=== PATIENT | female | born 1985 | race American Indian/Alaskan Native ===

== ENCOUNTER 2017-03-10 16:37 | Inpatient (IN) | payer OTHER ==
[2017-03-10] MEDS ORDERED: Sodium Chloride 0.9% 1,000 ML IV STA (17:11)
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
[2017-03-10] MEDS ORDERED: Morphine 4 MG/ML VIAL ONE ×2 (17:19→18:20)
[2017-03-10 17:39] LABS: BASO % 0.2 % (0.0-2.0); EOS # 0.1 K/uL (0.0-0.7); EOS % 1.2 % (0.0-4.0); HEMATOCRIT 38.2 % (34.0-47.0); LYMPH % 21.8 % (20.0-40.0); MEAN CELL VOLUME 90.3 fl (81.0-99.0); MEAN CORPUSCULAR HEMOGLOBIN 30.2 pg (27.0-31.0); MEAN CORPUSCULAR HGB CONC 33.4 g/dL (33.0-37.0); MEAN PLATELET VOLUME 9.4 fl (7.2-11.7); MONO # 1.4 K/uL (0.0-0.8); MONO % 15.4 % (0.0-10.0); NEUT # 5.5 K/uL (1.8-7.0); NEUT % 61.4 % (50.0-75.0); NRBC % 0.2 % (0.0-0.0); RED CELL DISTRIBUTION WIDTH 13.5 % (11.5-14.5)
[2017-03-10 18:01] LABS: ALB/GLOB RATIO 1.1 (1.0-2.1); ALKALINE PHOSPHATASE 111 U/L (38-126); ALT/SGPT 37 U/L (9-52); AST/SGOT 34 U/L (14-36); BILIRUBIN,TOTAL 0.3 mg/dl (0.2-1.3); BLOOD UREA NITROGEN 11 mg/dl (7-17); CALCIUM 9.4 mg/dL (8.4-10.2); CARBON DIOXIDE 24 mmol/L (22-30); CHLORIDE 102 mmol/L (98-107); GFR AFRICAN-AMERICAN > 60; GLUCOSE,RANDOM 86 mg/dL (65-105); POTASSIUM 3.7 MMOL/L (3.6-5.0); SODIUM 135 mmol/l (132-148); TOTAL PROTEIN 7.5 G/DL (6.3-8.2)
--- NOTE | 2017-03-10 18:19 | RAD ---
PROCEDURE: Radiographs of the Left Shoulder HISTORY: Pain COMPARISON: Spell FINDINGS: BONES: Bone alignment and mineralization are normal. There is no acute fracture or bone destruction. JOINTS: Normal. Glenohumeral and acromioclavicular joints preserved. SOFT TISSUES: Normal. OTHER FINDINGS: None. IMPRESSION: Normal examination.
--- NOTE | 2017-03-10 18:21 | RAD ---
PROCEDURE: Left Knee Radiographs. HISTORY: Pain. COMPARISON: None. FINDINGS: BONES: Bone alignment and mineralization are. No fracture. JOINTS: Normal. No osteoarthritis. JOINT EFFUSION: None. OTHER FINDINGS: None. IMPRESSION: No acute fracture or dislocation.
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
[2017-03-11] MEDS ORDERED: Lactated Ringer's 1,000 ML IV SCH (00:30)
[2017-03-11] MEDS: Lactated Ringer's 1,000 ML IV SCH ×2 (01:26→05:56)
[2017-03-11 02:18] LABS: HEMATOCRIT 32.2 % (34.0-47.0); MEAN CELL VOLUME 90.6 fl (81.0-99.0); MEAN CORPUSCULAR HEMOGLOBIN 29.8 pg (27.0-31.0); MEAN CORPUSCULAR HGB CONC 32.9 g/dL (33.0-37.0); RED CELL DISTRIBUTION WIDTH 13.4 % (11.5-14.5); WHITE BLOOD COUNT 10.6 K/uL (4.8-10.8)
[2017-03-11 02:22] LABS: RBC URINE 1 /hpf (0-3); URINE BACTERIA RARE (<OCC); URINE BILIRUBIN NEGATIVE (NEGATIVE); URINE BLOOD NEGATIVE (NEGATIVE); URINE COLOR YELLOW (YELLOW); URINE GLUCOSE (UA) 50 mg/dL (Normal); URINE KETONE NEGATIVE (NEGATIVE); URINE LEUKOCYTE ESTERASE NEG Leu/uL (Negative); URINE PROTEIN NEGATIVE (NEGATIVE); URINE UROBILINOGEN 0.2-1.0 mg/dL (0.2-1.0); WBC URINE 1 /hpf (0-5)
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
[2017-03-11 03:55] LABS: BLOOD UREA NITROGEN 9 mg/dl (7-17); GFR AFRICAN-AMERICAN > 60; GLUCOSE,RANDOM 101 mg/dL (65-105); SODIUM 133 mmol/l (132-148)
[2017-03-11 03:56] LABS: ALKALINE PHOSPHATASE 91 U/L (38-126); ALT/SGPT 34 U/L (9-52); AST/SGOT 35 U/L (14-36); BILIRUBIN,TOTAL 0.2 mg/dl (0.2-1.3); CARBON DIOXIDE 21 mmol/L (22-30); CHLORIDE 104 mmol/L (98-107); POTASSIUM 3.6 MMOL/L (3.6-5.0); TOTAL PROTEIN 6.3 G/DL (6.3-8.2)
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
[2017-03-11] MEDS: Betamethasone Soluspan 30 mg/5mL Inj Susp IM SCH (05:13)
--- NOTE | 2017-03-11 10:09 | CT ---
PROCEDURE: CT of the left knee without contrast. HISTORY: pain mid thigh to mid kelly; severe knee pain COMPARISON: Comparison is made to the previous same-day x-ray of the left knee TECHNIQUE: Axial and reformatted coronal and sagittal CT images of the left knee were obtained and submitted in bone and soft tissue windows. 3D reconstructed images of the left knee were also processed in separate workstation and submitted for evaluation. FINDINGS: There is a comminuted displaced fracture at the lateral aspect of the proximal left tibia extending to the articular surface. There is a displaced bony fragment posteriorly and laterally by approximately 1.8 centimeter. There is also displaced smaller bony fragment seen adjacent to tibia-fibular proximal articulation. The displaced fragment is slightly compressed and mildly rotated. No evidence of significant dislocation at the proximal tibial-fibular joint. There is moderate to large lipohemarthrosis in the left knee joint. There is lateral subluxation of the patella. The possibility of medial retinaculum injury or tear should be considered. The fracture is close to the patellar tendon insertion site and the possibility of injury of the distal patellar tendon is also not totally excluded. There are subcutaneous edema and posttraumatic changes more prominent at the anterior and medial aspect of the knee. Small droplet of air seen in the left knee joint. IMPRESSION: Acute comminuted and displaced articular fracture at the proximal left tibia as described above. Lateral subluxation of the patella. Moderate lipohemarthrosis. Posttraumatic soft tissue changes. If clinically warranted further assessment by MRI may be obtained to exclude ligament and tendon injury. Preliminary report was submitted by [facility].
[2017-03-11] MEDS ORDERED: Phenylephrine 10 mg/ml Inj ONE (10:22)
[2017-03-11] MEDS ORDERED: Morphine 1 mg/ml preservative-free Inj(Duramorph) ONE (10:41)
[2017-03-11] MEDS ORDERED: ePHEDrine 50 mg/ml Inj ONE (10:45)
--- NOTE | 2017-03-11 10:45 | OBPN ---
Datetime: 03/10/2017 23:59 Membranes, Provider: Intact Contraction Comments Provider: uterine irritability, rare ctxs FHR - Baseline A Provider: 140 IP Progress Note Comment: Patient cleared for surgery. Either general or regional anesthesia accept able. monitoring will be completed pre and postop. Intraop monitoring not indicated. NICHD Accel Fetus A IP Provider: [id number] FHR Category Provider Fetus A: Category I NICHD Variability Prov Fetus A: Moderate 6-25bpm NICHD Decel Fetus A IP Provider: None
[2017-03-11 11:02] LABS: PARTIAL THROMBOPLASTIN TIME 27.6 Seconds (25.6-37.1)
[2017-03-11] MEDS ORDERED: Lactated Ringer's 1,000 ML IV ONE ×3 (11:45→13:20)
[2017-03-11] MEDS ORDERED: Oxycodone/Acetaminophen 5/325 mg Tab PO PRN ×2 (15:12)
--- NOTE | 2017-03-11 17:14 | RAD ---
PROCEDURE: Left Knee Radiographs. HISTORY: Postop COMPARISON: Preoperative study March 11, 2017. FINDINGS: BONES: Satisfactory postoperative status following open reduction internal fixation of known left tibial fracture. Unremarkable orthopedic hardware. JOINTS: Normal. No osteoarthritis. JOINT EFFUSION: Expected soft tissue findings noted. OTHER FINDINGS: None. IMPRESSION: Satisfactory postoperative status.
--- NOTE | 2017-03-11 17:28 | RAD ---
PROCEDURE: Fluoroscopy up to 1 hr. HISTORY: LEFT TIBIAL PLATEAU COMPARISON: None TECHNIQUE: Standard protocol for this study/examination. FINDINGS: Submitted images from the current procedure: 18.0 IMPRESSION: Less than 1 hr fluoroscopic time utilized during performance of the procedure.
--- NOTE | 2017-03-11 20:04 | CP.PCM.PN ---
Subjective - Date & Time of Evaluation Date of Evaluation: 03/11/17 Time of Evaluation: 20:02 - Subjective Subjective: Patient seen at bedside. Patient without complaints at this time. Patient denies any pain or cramping or vaginal bleeding or leakage of fluids. Patient reports movement. Objective - Vital Signs/Intake and Output Vital Signs (last 24 hours): Temp Pulse Resp BP Pulse Ox 97.7 F 102 H 19 130/63 98 03/11/17 15:25 03/11/17 15:25 03/11/17 15:25 03/11/17 15:25 03/11/17 15:25 - Medications Medications: Current Medications Acetaminophen (Tylenol 325mg Tab) 325 mg PO Q4 PRN PRN Reason: Pain, Mild (1-3) Betamethasone Acet/Betameth SodPhos (Celestone Soluspan) 12 mg IM Q24H [facility] Stop: 03/12/17 04:46 Last Admin: 03/11/17 05:13 Dose: 12 mg Enoxaparin Sodium (Lovenox) 40 mg SC DAILY [facility] PRN Reason: Protocol Stop: 03/19/17 14:00 Lactated Ringer's (Lactated Ringer's) 1,000 mls @ 100 mls/hr IV .Q10H [facility] Cefazolin Sodium 2 gm/ Sodium (Chloride) 100 mls @ 100 mls/hr IVPB Q12 [facility] Stop: 03/12/17 21:00 Oxycodone/Acetaminophen (Percocet 5/325 Mg Tab) 1 tab PO Q4 PRN PRN Reason: Pain, moderate (4-7) Stop: 03/14/17 15:13 Oxycodone/Acetaminophen (Percocet 5/325 Mg Tab) 2 tab PO Q4 PRN PRN Reason: Pain, severe (8-10) Stop: 03/14/17 15:13 - Labs Labs: PT 11.5 Seconds (9.8-13.1) 03/11/17 10:37 INR 1.1 (0.9-1.2) 03/11/17 10:37 APTT 27.6 Seconds (25.6-37.1) 03/11/17 10:37 Assessment and Plan - Assessment and Plan (Free Text) Assessment: Postop day #0 status post orthopedic procedure, 32 weeks gestational age. Patient recovering well, no obstetrical issues at this time nonstress test reactive and reassuring, uterine irritability and irregular occasional contraction on tocometer. Plan: Continue postop management as per primary surgical team Continue nonstress tests per shift Patient will receive second dose of betamethasone tomorrow morning I discussed plan with patient and all patient questions answered.
[2017-03-11] MEDS: ceFAZolin 2 GM in Sodium Chloride 0.9% 100 ML IVPB SCH (22:21)
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
[2017-03-12] MEDS: Lactated Ringer's 1,000 ML IV SCH ×2 (00:42→21:13)
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
[2017-03-12] MEDS: Betamethasone Soluspan 30 mg/5mL Inj Susp IM SCH (05:10)
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
[2017-03-12] MEDS: ceFAZolin 2 GM in Sodium Chloride 0.9% 100 ML IVPB SCH ×2 (09:55→20:33)
[2017-03-12 10:33] LABS: HEMATOCRIT 28.8 % (34.0-47.0); LYMPH # 0.7 K/uL (1.0-4.3); LYMPH % 6.7 % (20.0-40.0); MEAN CELL VOLUME 90.9 fl (81.0-99.0); MEAN CORPUSCULAR HEMOGLOBIN 30.5 pg (27.0-31.0); MEAN CORPUSCULAR HGB CONC 33.6 g/dL (33.0-37.0); MEAN PLATELET VOLUME 9.3 fl (7.2-11.7); MONO # 0.8 K/uL (0.0-0.8); MONO % 7.4 % (0.0-10.0); NEUT # 9.2 K/uL (1.8-7.0); NEUT % 85.9 % (50.0-75.0); NRBC % 0.1 % (0.0-0.0); PLATELET COUNT 182 K/uL (130-400); RED CELL DISTRIBUTION WIDTH 13.3 % (11.5-14.5); WHITE BLOOD COUNT 10.7 K/uL (4.8-10.8)
[2017-03-12 10:40] LABS: ALKALINE PHOSPHATASE 91 U/L (38-126); ALT/SGPT 36 U/L (9-52); AST/SGOT 54 U/L (14-36); BILIRUBIN,TOTAL 0.4 mg/dl (0.2-1.3); BLOOD UREA NITROGEN 8 mg/dl (7-17); CALCIUM 9.2 mg/dL (8.4-10.2); CARBON DIOXIDE 22 mmol/L (22-30); CHLORIDE 106 mmol/L (98-107); GFR AFRICAN-AMERICAN > 60; GLUCOSE,RANDOM 112 mg/dL (65-105); POTASSIUM 3.8 MMOL/L (3.6-5.0); SODIUM 138 mmol/l (132-148); TOTAL PROTEIN 6.4 G/DL (6.3-8.2)
[2017-03-12 11:04] LABS: NEUTROPHIL 90 % (42-75); TOTAL CELLS COUNTED 100
[2017-03-12] MEDS: Enoxaparin 40 mg Syringe SC SCH (14:55)
[2017-03-12 17:05] VITALS: RESP 20; O2SAT 99
[2017-03-13 08:10] LABS: BASO % 0.1 % (0.0-2.0); HEMATOCRIT 28.2 % (34.0-47.0); LYMPH # 1.4 K/uL (1.0-4.3); LYMPH % 11.4 % (20.0-40.0); MEAN CELL VOLUME 90.5 fl (81.0-99.0); MEAN CORPUSCULAR HEMOGLOBIN 30.5 pg (27.0-31.0); MEAN CORPUSCULAR HGB CONC 33.7 g/dL (33.0-37.0); MEAN PLATELET VOLUME 9.5 fl (7.2-11.7); MONO # 1.8 K/uL (0.0-0.8); MONO % 15.4 % (0.0-10.0); NEUT # 8.7 K/uL (1.8-7.0); NEUT % 73.1 % (50.0-75.0); RED CELL DISTRIBUTION WIDTH 13.6 % (11.5-14.5); WHITE BLOOD COUNT 11.9 K/uL (4.8-10.8)
--- NOTE | 2017-03-13 08:11 | CP.PCM.PN ---
Subjective - Date & Time of Evaluation Date of Evaluation: 03/13/17 Time of Evaluation: 13:10 - Subjective Subjective: Orthopedics- Dr. Koroma. 32 year odl female patient seen at [facility] concerning prognosis 2 days s/p left tibial ORIF. Pt reports pains is a 4/10 though well controlled by pain medications. Pt reports she has post-operative fever hoat has resolved but is experiencing minor chills. Reports feelings of constipation but reports (+) bowel movement yesterday evening. She denies any acute overnight events. Objective - Vital Signs/Intake and Output Vital Signs (last 24 hours): Temp Pulse Resp BP Pulse Ox 98.7 F 102 H 20 124/60 99 03/12/17 17:03 03/12/17 17:03 03/12/17 17:03 03/12/17 17:03 03/12/17 17:03 - Medications Medications: Current Medications Acetaminophen (Tylenol 325mg Tab) 325 mg PO Q4 PRN PRN Reason: Pain, Mild (1-3) Enoxaparin Sodium (Lovenox) 40 mg SC DAILY [facility] PRN Reason: Protocol Stop: 03/19/17 14:00 Last Admin: 03/12/17 14:55 Dose: 40 mg Ferrous Sulfate (Feosol) 325 mg PO BID [facility] Last Admin: 03/12/17 20:34 Dose: 325 mg Lactated Ringer's (Lactated Ringer's) 1,000 mls @ 100 mls/hr IV .Q10H [facility] Last Admin: 03/12/17 21:13 Dose: Not Given Ondansetron HCl (Zofran Tab) 4 mg PO Q6 PRN PRN Reason: Nausea/Vomiting Oxycodone/Acetaminophen (Percocet 5/325 Mg Tab) 1 tab PO Q4 PRN PRN Reason: Pain, moderate (4-7) Stop: 03/14/17 15:13 Oxycodone/Acetaminophen (Percocet 5/325 Mg Tab) 2 tab PO Q4 PRN PRN Reason: Pain, severe (8-10) Stop: 03/14/17 15:13 - Labs Labs: 03/12/17 10:25 03/12/17 10:25 PT 11.5 Seconds (9.8-13.1) 03/11/17 10:37 INR 1.1 (0.9-1.2) 03/11/17 10:37 APTT 27.6 Seconds (25.6-37.1) 03/11/17 10:37 - Constitutional Appears: Well, Non-toxic, No Acute Distress - Extremities Exam Additional comments: Left lower leg focused. Dressings are, clean, dry, and intact. Knee immobilizer in place. Incision sites and all sutures and spencer are intact. Lateral incision site free of of active bleeding. Medial incision site shows minor pinpont bleeding. No acute signs of infection to area. Tenderness to palpation remains at operative site, remains localized to area of trauma and surgical intervention. - Neurological Exam Neurological Exam: Alert, Awake, Oriented x3 - Psychiatric Exam Psychiatric exam: Normal Affect, Normal Mood Assessment and Plan - Assessment and Plan (Free Text) Assessment: 32 year odl female, 33 weeks is 2 days s/p left tibial plateau ORIF. Plan: Pt seen and evaluated. Chart, labs, and vitals reviewed. No reported stress to fetus. Discussed with attending Dr. Koroma who endorsed the following read. Left knee dressing change performed with xeroform, DSD, cast padding, and LOU. Home dressing changes to be performed daily with sterile 4x4 gauze or bordered gauze. Pt is concerned about wound care at home, there will be know attendant available. Discussed that home care services may need to be established. Pt well follow up with Dr. Koroma in office within 1 week time. Pt to remain non-weightbearing with use of crutches and knee immobilizer to left lower extremity. Pt is stable from orthopedics standpoint for discharge home, once Home dressing change plan finalized with outpatient case manager or primary team.
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
[2017-03-13] MEDS: Enoxaparin 40 mg Syringe SC SCH (08:37)
[2017-03-13 08:49] LABS: IRON 256 ug/dL (37-170)
[2017-03-13 23:47] VITALS: BP 110/63; PULSE 90; TEMP 98.9
--- NOTE | 2017-03-15 09:08 | CP.PCM.DIS ---
Provider - Provider Date of Admission: 03/11/17 15:03 Attending physician: Kody Koroma MD Time Spent in preparation of Discharge (in minutes): 15 Diagnosis - Discharge Diagnosis (1) DVT prophylaxis Status: Acute (2) Tibial plateau fracture Status: Acute Hospital Course - Lab Results Lab Results: Most Recent Lab Values WBC 11.9 K/uL (4.8-10.8) H 03/13/17 06:00 RBC 3.12 Mil/uL (3.80-5.20) L 03/13/17 06:00 Hgb 9.5 g/dL (12.0-16.0) L 03/13/17 06:00 Hct 28.2 % (34.0-47.0) L 03/13/17 06:00 MCV 90.5 fl (81.0-99.0) 03/13/17 06:00 MCH 30.5 pg (27.0-31.0) 03/13/17 06:00 MCHC 33.7 g/dL (33.0-37.0) 03/13/17 06:00 RDW 13.6 % (11.5-14.5) 03/13/17 06:00 Plt Count 176 K/uL (130-400) 03/13/17 06:00 MPV 9.5 fl (7.2-11.7) 03/13/17 06:00 Neut % (Auto) 73.1 % (50.0-75.0) 03/13/17 06:00 Lymph % (Auto) 11.4 % (20.0-40.0) L 03/13/17 06:00 [place] % (Auto) 15.4 % (0.0-10.0) H 03/13/17 06:00 Eos % (Auto) 0.0 % (0.0-4.0) 03/13/17 06:00 Baso % (Auto) 0.1 % (0.0-2.0) 03/13/17 06:00 Neut # 8.7 K/uL (1.8-7.0) H 03/13/17 06:00 Lymph # 1.4 K/uL (1.0-4.3) 03/13/17 06:00 [place]ett # 1.8 K/uL (0.0-0.8) H 03/13/17 06:00 Eos # 0.0 K/uL (0.0-0.7) 03/13/17 06:00 Baso # 0.0 K/uL (0.0-0.2) 03/13/17 06:00 Neutrophils % (Manual) 90 % (42-75) H 03/12/17 10:25 Band Neutrophils % 1 % (0-2) 03/12/17 10:25 Lymphocytes % (Manual) 6 % (20-50) L 03/12/17 10:25 Monocytes % (Manual) 3 % (0-10) 03/12/17 10:25 Platelet Estimate Normal (NORMAL) 03/12/17 10:25 PT 11.5 Seconds (9.8-13.1) 03/11/17 10:37 INR 1.1 (0.9-1.2) 03/11/17 10:37 APTT 27.6 Seconds (25.6-37.1) 03/11/17 10:37 Sodium 138 mmol/l (132-148) 03/12/17 10:25 Potassium 3.8 MMOL/L (3.6-5.0) 03/12/17 10:25 Chloride 106 mmol/L (98-107) 03/12/17 10:25 Carbon Dioxide 22 mmol/L (22-30) 03/12/17 10:25 Anion Gap 14 (10-20) 03/12/17 10:25 BUN 8 mg/dl (7-17) 03/12/17 10:25 Creatinine 0.7 mg/dL (0.7-1.2) 03/12/17 10:25 Est GFR ( Amer) > 60 03/12/17 10:25 Est GFR (Non-Af Amer) > 60 03/12/17 10:25 Random Glucose 112 mg/dL (65-105) H 03/12/17 10:25 Calcium 9.2 mg/dL (8.4-10.2) 03/12/17 10:25 Iron 256 ug/dL (37-170) H 03/13/17 06:00 TIBC 367 ug/dL (250-450) 03/13/17 06:00 % Saturation 70 % (20-55) H 03/13/17 06:00 Transferrin 292.31 mg/dL (206-381) 03/13/17 06:00 Ferritin 14.4 ng/mL 03/13/17 06:00 Total Bilirubin 0.4 mg/dl (0.2-1.3) 03/12/17 10:25 AST 54 U/L (14-36) H D 03/12/17 10:25 ALT 36 U/L (9-52) 03/12/17 10:25 Alkaline Phosphatase 91 U/L (38-126) 03/12/17 10:25 Total Protein 6.4 G/DL (6.3-8.2) 03/12/17 10:25 Albumin 3.2 g/dL (3.5-5.0) L 03/12/17 10:25 Globulin 3.1 gm/dL (2.2-3.9) 03/12/17 10:25 Albumin/Globulin Ratio 1.0 (1.0-2.1) 03/12/17 10:25 Urine Color Yellow (YELLOW) 03/11/17 02:13 Urine Clarity Slighty-cloudy (Clear) 03/11/17 02:13 Urine pH 6.0 (5.0-8.0) 03/11/17 02:13 Ur Specific [place] 1.010 (1.003-1.030) 03/11/17 02:13 Urine Protein Negative mg/dL (NEGATIVE) 03/11/17 02:13 Urine Glucose (UA) 50 mg/dL (Normal) 03/11/17 02:13 Urine Ketones Negative mg/dL (NEGATIVE) 03/11/17 02:13 Urine Blood Negative (NEGATIVE) 03/11/17 02:13 Urine Nitrate Negative (NEGATIVE) 03/11/17 02:13 Urine Bilirubin Negative (NEGATIVE) 03/11/17 02:13 Urine Urobilinogen 0.2-1.0 mg/dL (0.2-1.0) 03/11/17 02:13 Ur Leukocyte Esterase Neg [place]/uL (Negative) 03/11/17 02:13 Urine RBC (Auto) 1 /hpf (0-3) 03/11/17 02:13 Urine Microscopic WBC 1 /hpf (0-5) 03/11/17 02:13 Ur Squamous Epith Cells 1 /hpf (0-5) 03/11/17 02:13 Urine Bacteria Rare (<OCC) 03/11/17 02:13 Blood Type A POSITIVE 03/11/17 00:20 Blood Type Confirm A POSITIVE 03/12/17 13:30 Antibody Screen Negative 03/11/17 00:20 BBK History Checked No verified bt 03/11/17 00:20 Discharge Exam - Head Exam Head Exam: ATRAUMATIC, NORMAL INSPECTION, NORMOCEPHALIC Discharge Plan - Discharge Medications Prescriptions: Enoxaparin [Lovenox] 40 mg SC DAILY #14 syr oxyCODONE/Acetaminophen [Percocet 5/325 mg Tab] 1 tab PO Q4 PRN #10 tab PRN Reason: Pain, Moderate (4-7) - Follow Up Plan Condition: FAIR Disposition: HOME/ ROUTINE Instructions: Leg Fracture (GEN), Knee Immobilizer (GEN), ORIF (DC), ORIF (GEN) Additional Instructions: 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 distla pms intact. final dx-tibial plateau fx f/u rmg for wound care, ortho for ouptt f/u lovenox for dvt ppx
== END 2017-03-13 18:30 | disposition home or self-care (01) | DRG 781 ==
LOC: H.EROB 16:37 → H.ER 16:37 → H.EROB 03-11 15:03 → H.EROB2 03-11 15:20 → H.OB/GYN 03-11 15:51
PROVIDERS: ADMIT Orthopaedic Surgery; ATTEND Orthopaedic Surgery
PROC: 0QUH0JZ Supplement Left Tibia with Synthetic Substitute, Open Approach (ICD-10-PCS; 2017-03-11)
PROC: 0QSH04Z Reposition Left Tibia with Internal Fixation Device, Open Approach (ICD-10-PCS; principal; 2017-03-11 10:30)
DX: O26.893 Other specified pregnancy related conditions, third trimester (principal); S82.142A Displaced bicondylar fracture of left tibia, initial encounter for closed fracture; Z3A.34 34 weeks gestation of pregnancy; V89.2XXA Person injured in unspecified motor-vehicle accident, traffic, initial encounter